=== PATIENT | female | born 1970 | race Caucasian/White ===

== ENCOUNTER → 2016-08-01 | Day surgery (SDC) | payer BC ==
[~2016-08-01] VITALS: Ht 152.4 cm; Wt 49.5 kg
[~2016-08-01] MED LIST: ACETAMINOPHEN 1000 MG/100 ML VIAL IV ONE; APREPITANT 40 MG CAP ONE; BUPIVACAINE/EPINEPHRINE 0.25% 50 ML VIAL ONE; BUPIVACAINE/EPINEPHRINE 0.25% PF 10 ML VIAL INFIL ONE; DEXAMETHASONE SOD PHOS 4 MG/ML VIAL ONE; DO NOT ADM ANY ANTICOAGULANT DRUGS XX PRN; FAMOTIDINE 20 MG/2 ML VIAL ONE; INSULIN HUMAN REGULAR 1,000 UNITS/10 ML VIAL SQ PRN; LACTATED RINGER'S 1000 ML INJ 1,000 ML IV ONE; LACTATED RINGER'S 1000 ML IV SCH; LEVO.1 PO; METOPROLOL TARTRATE 25 MG TAB PO PRN; MIDAZOLAM HCL 2 MG/2 ML VIAL ONE; ONDANSETRON HCL 4 MG/2 ML VIAL IV PUSH ONE; PERC5TAB12 PO; PROPOFOL 200 MG/20 ML AMP IV ONE; SODIUM CHLORID 0.9% 500 ML IV SCH; SULF1TAB23 PO; fentaNYL CITRATE 250 MCG/5 ML AMP ONE
--- NOTE | 2016-08-01 06:09 | MH ---
cc: ADÁN ANGELES DATE OF ADMISSION: 08/01/2016 REASON FOR ADMISSION A 46-year-old patient scheduled for an operative laparoscopy with cystectomy. HISTORY AND PHYSICAL A 46-year-old white female who has a right ovarian cyst which is relatively small. The patient had onset of pain, bloating and dyspareunia. The patient believes that it is a cyst. She started some improvement, cancelled her surgery before and then the pain came back severe. The patient is requesting a cystectomy but is aware that she may end up with a unilateral or bilateral oophorectomy. The patient has frequency and burning. PAST MEDICAL HISTORY Hypothyroidism. SURGICAL HISTORY She had the left ovary and fallopian tube removed in 2008, although we see that on ultrasound. OB HISTORY She has had three vaginal births before. 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 She had ASCUS in June of 2016. MEDICATIONS 1. Synthroid. 2. Bactrim. ALLERGIES None. SOCIAL HISTORY She does not smoke, drink or use drugs. PHYSICAL EXAMINATION VITAL SIGNS: Stable and afebrile. NECK: Thyroid palpably normal. HEART: Regular rate and rhythm without murmur or gallop. LUNGS: Clear to auscultation bilaterally. ABDOMEN: Soft, nontender, nondistended. Uterus normal size. No adnexal mass. IMPRESSION AT THIS TIME This patient has a right ovarian cyst. She will have surgery. She seems to have a left ovary which will be evaluated for previous removal, possible cystectomy previously on the left. MD ALBERT Deluca/IRISH /10:28 PM /6:01 AM
[2016-08-01 08:55] VITALS: BP 142/75; PULSE 63; RESP 16; TEMP 98.7; O2SAT 100
[2016-08-01 09:27] LABS: AUTOMATED NEUTROPHIL # 2.2 TH/MM3 (1.8-7.7); BASOPHIL # 0.1 TH/MM3 (0-0.2); BASOPHIL % 1.3 % (0.0-2.0); EOSINOPHIL # 0.1 TH/MM3 (0-0.4); EOSINOPHIL % 2.5 % (0.0-4.0); HEMATOCRIT 42.9 % (35.0-46.0); HEMO FLAGS DIFF FINAL; LYMPH % 41.5 % (9.0-44.0); MEAN CELL VOLUME 91.7 FL (80.0-100.0); MEAN CORPUSCULAR HEMOGLOBIN 30.4 PG (27.0-34.0); MEAN CORPUSCULAR HGB CONC 33.2 % (32.0-36.0); MONO % 9.7 % (0.0-8.0); PLATELET COUNT 290 TH/MM3 (150-450); RED BLOOD COUNT 4.68 MIL/MM3 (4.00-5.30); RED CELL DISTRIBUTION WIDTH 13.8 % (11.6-17.2); WHITE BLOOD COUNT 4.9 TH/MM3 (4.0-11.0)
--- NOTE | 2016-08-01 11:52 | PD.OP ---
Operative Report Date of Surgery: Aug 01, 2016 Preoperative Diagnosis: (1) Pelvic pain Postoperative Diagnosis: (1) Pelvic pain Procedure: DX LSC Anesthesia: general Surgeon: Tyrel De León Profiling Machine Set Up Operator Tool(s): Tyerl Person MD Aug 01, 2016 11:52
--- NOTE | 2016-08-01 11:53 | HHI.DCPOC ---
Discharge Care Plan Diagnosis: (1) Pelvic pain Report Symptoms to Your Doctor -Temperate above 100.5 degrees -Redness, of incision or excessive or foul smelling drainage -Unusual pain or calf pain -Increased vaginal bleeding -Painful or difficulty urinating -Feelings of extreme sadness or anxiety after 2 weeks Goals to Promote Your Health * To prevent worsening of your condition and complications * To maintain your health at the optimal level Directions to Meet Your Goals Take your medications as prescribed Follow your dietary instruction Follow activity as directed Ensure plenty of rest for recovery Drink fluids for hydration Keep your appointments as scheduled Take your immunizations and boosters as scheduled If your symptoms worsen call your PCP, if no PCP go to Urgent Care Center or Emergency Room Smoking is Dangerous to Your Health. Avoid second hand smoke Call the 24-hour crisis hotline for domestic abuse at Tyrel De León MD Aug 01, 2016 11:53
[2016-08-01 12:30] VITALS: BP 99/68; PULSE 49; RESP 16; TEMP 98.2; O2SAT 97
--- NOTE | 2016-08-02 21:32 | MP ---
cc: ADÁN DE LEÓN M.D. DATE OF SURGERY: 08/01/2016 PREOPERATIVE DIAGNOSIS: Pelvic pain POSTOPERATIVE DIAGNOSIS: Pelvic pain, pelvic congestion, worse on right than left. OPERATION: Diagnostic laparoscopy. SURGEON: Dr. Adán De León ANESTHESIA: General. ESTIMATED BLOOD LOSS: 10 cc. COMPLICATIONS: None. FINDINGS: The patient had absent left ovary and normal right ovary with a healing cyst and pelvic congestion on the right side. PROCEDURE IN DETAIL: After informed consent, the patient was taken to the operating room where she was placed under general anesthesia, placed in supine position, legs in the Joshua stirrups. The abdomen, perineum and vagina prepped and draped in normal sterile fashion. After adequate anesthesia was assured, and a time out was taken for procedure and identifying the patient, a speculum was placed in the vagina. Cervix grasped with single-tooth tenaculum. An [place] manipulator was placed into her cervix. On exam there were no other abnormalities. Gloves were changed and Scott catheter was placed to gravity. Gloves were changed and a 5 millimeter infraumbilical incision was them made after injection with 0.25% Marcaine with epinephrine, we entered the abdomen under direct visualization, insufflated the abdomen. The upper and lower abdomen were normal. Suprapubic trocar was placed after injection with 0.25% Marcaine with epinephrine, this was 5 millimeter. Survey revealed normal uterus. It started to become atrophied from menopause. The anterior cul-de-sac, posterior cul-de-sac were normal. The left fallopian tube was present but the left ovary was absent. The right ovary was present. She did have a small corpus luteum at the top. There was a normal fallopian tube. She had significant pelvic congestion and varicosity all about the ovary and down into the cul-de-sac near the uterosacral and cardinal ligaments. Venous congestion was noted. No endometriosis or other abnormalities. The bladder appeared normal. The procedure was ended. All instruments removed from the abdomen. The cause of pain was pelvic congestion. The skin was closed with Monocryl suture. The patient tolerated the procedure well. She was extubated and taken to the Recovery Room in stable condition. MD ALBERT Deluca/LEONARD /9:24 PM /9:16 PM
== END | disposition home or self-care (01) ==
LOC: HSDC 08:21
PROVIDERS: ATTEND Obstetrics & Gynecology
DX: R10.2 Pelvic and perineal pain (principal); N94.89 Other specified conditions associated with female genital organs and menstrual cycle
CPT/HCPCS: 00790; 49320; 84703; 85025; 86850; 86900; 86901; J0131; J1100; J2250; J2405; J3010; J7120; J8501